=== PATIENT | male | born 1990 | race Caucasian/White ===

== ENCOUNTER 2017-04-01 06:49 | Emergency (ER) | payer OTHER ==
[2017-04-01 07:17] VITALS: BP 144/82
--- NOTE | 2017-04-01 07:29 | EDM.PDOC ---
ED HPI GENERAL MEDICAL PROBLEM - General Chief Complaint: Chest Pain Stated Complaint: CHEST PAIN Time Seen by Provider: 04/01/17 07:20 Source of Information: Reports: Patient History Limitations: Reports: No Limitations - History of Present Illness INITIAL COMMENTS - FREE TEXT/NARRATIVE: 27-year-old male presents to the ED with severe left-sided chest pain. Pain is sharp and pleuritic and worsens with deep breathing or coughing. Also worsens with movement. He states he thinks he injured his chest wall by playing basketball a few weeks ago aggressively to the point that he vomited. He was not used to that form of strenuous exercise. At that time he was diagnosed with intercostal muscle strain. He states he's had intermittent chest pain since. Pain worsened last evening and is much worse this morning. He has been drinking alcohol a good portion of the last evening and early this morning. Denies any vomiting. States he has a mild cough at present with yellow sputum. Clinically he does feel slightly warm to palpation. Onset: Other (Off and on symptoms for 3 months worse the last) Onset Date: 03/31/17 (Guarded again last evening.) Duration: Hour(s):, Intermittent, Waxing/Waning Location: Reports: Chest (Left anterior chest. The corneum.) Quality: Reports: Ache, Sharp, Stabbing Severity: Moderate (Pain is listed as 7 or 8 out of 10 with movement the hole drill still it's a 1 or 2.) Improves with: Reports: Rest Worsens with: Reports: Other (Coughing or deep breathing.), Movement Context: Denies: Activity, Exercise, Sick Contact, Trauma, Other Associated Symptoms: Reports: No Other Symptoms, Cough, cough w sputum. Denies : Confusion, Chest Pain, Diaphoresis (Yellowish tinge to sputum), Fever/Chills, Headaches, Loss of Appetite, Malaise, Nausea/Vomiting, Rash, Seizure, Shortness of Breath, Syncope Treatments LITIGATION PARTNER: Reports: Other (see below) (None.) Left Chest Pain Score (Numeric/FACES): 8 - Related Data Allergies Allergy/AdvReac Type Severity Reaction Status Date / Time No Known Allergies Allergy Verified 08/19/16 23:12 Home Meds: Home Meds Dextroamphetamine/Amphetamine [Adderall] 15 mg PO BID 09/03/17 [History] Diclofenac Sodium [Voltaren] 50 mg PO TIDMEALS #24 tab.ec 04/01/17 [Rx] Prednisone [IMW: predniSONE] 20 mg PO ASDIRECTED #15 tab 04/01/17 [Rx] oxyCODONE HCl/Acetaminophen [Percocet 5-325 mg Tablet] 1 - 2 each PO Q4H PRN # 15 tablet 04/01/17 [Rx] Past Medical History - Past Health History Medical/Surgical History: Denies Medical/Surgical History Musculoskeletal History: Reports: Other (See Below) Other Musculoskeletal History: intercostal muslce strain Psychiatric History: Reports: ADHD (Takes Adderall.) Social & Family History - Tobacco Use Smoking Status *Q: Current Every Day Smoker Years of Tobacco use: 9 Packs/Tins Daily: 0.5 Used Tobacco, but Quit: No Second Hand Smoke Exposure: No - Caffeine Use Caffeine Use: Reports: Energy Drinks - Recreational Drug Use Recreational Drug Use: No - Living Situation & Occupation Living situation: Reports: Single Occupation: Employed ED ROS GENERAL - Review of Systems Review Of Systems: See Below Constitutional: Reports: Decreased Appetite. Denies: Fever, Chills, Malaise, Weakness, Fatigue, Weight Loss HEENT: Reports: No Symptoms Respiratory: Reports: Shortness of Breath (Due to severe pleuritic chest pain.) , Pleuritic Chest Pain ( yellowish tinged sputum. very sharp stabbing left- sided chest pain worse with movement and deep inspiration. ), Cough, Sputum ( Mild sleep) Cardiovascular: Reports: Chest Pain. Denies: Blood Pressure Problem (See history of present illness), Claudication, Dyspnea on Exertion, Edema, Lightheadedness, Orthopnea, Palpitations Endocrine: Reports: No Symptoms GI/Abdominal: Reports: Nausea (Mildly nauseated this morning. He is hung over.) . Denies: Abdominal Pain : Reports: No Symptoms Musculoskeletal: Denies: Shoulder Pain, Arm Pain, Back Pain, Joint Pain, Joint Swelling Skin: Reports: No Symptoms Neurological: Reports: No Symptoms Psychiatric: Reports: No Symptoms Hematologic/Lymphatic: Reports: No Symptoms Immunologic: Reports: No Symptoms ED EXAM, GENERAL - Physical Exam Exam: See Below Exam Limited By: Intoxication (Mildly intoxicated.) General Appearance: Alert, WD/WN, No Apparent Distress, Other (Does feel a little bit warm to palpation.) Eye Exam: Bilateral Eye: Normal Inspection, Nystagmus (Mild on bilateral lateral superior gaze.) Throat/Mouth: Normal Inspection, Normal Lips, Normal Teeth, Normal Oropharynx, Other Head: Atraumatic, Normocephalic (Oropharynx is slightly erythematous.) Neck: Normal Inspection, Supple, Non-Tender, Full Range of Motion. No: Carotid Bruit, Lymphadenopathy (L), Lymphadenopathy (R), Thyromegaly Respiratory/Chest: Respiratory Distress, Decreased Breath Sounds (Decreased breath sounds to the lower 40% of lung newell as he can't take a deep breath due to the severity of the pain.), Splinting (Splinting rest side.), Other ( Patient is exquisitely tender to touch particularly ribs 34 and 5 midclavicular line and lateral anterior axillary line. No evidence of trauma to this area of the chest wall.). No: Chest Non-Tender (Shallow breathing due to left-sided chest pain) Cardiovascular: Normal Peripheral Pulses, Regular Rate, Rhythm, No Edema, No Murmur Peripheral Pulses: 2+: Posterior Tibial (L), Posterior Tibial (R), Dorsalis Pedis (L), Dorsalis Pedis (R) GI/Abdominal: Normal Bowel Sounds, Non-Tender, No Organomegaly, No Distention (Male) Exam: Normal Inspection Rectal (Males) Exam: Normal Exam Back Exam: Normal Inspection, Full Range of Motion Extremities: Normal Range of Motion, Non-Tender Neurological: Alert, Oriented, CN II-XII Intact, Normal Cognition, Normal Reflexes, No Motor/Sensory Deficits Psychiatric: Normal Affect, Normal Mood Skin Exam: Dry, Intact, Normal Color, No Rash EKG INTERPRETATION EKG Date: 04/01/17 Time: 07:00 Rhythm: NSR Rate (Beats/Min): 92 [place]: Normal P-Wave: Present QRS: Normal ST-T: Other QT: Normal EKG Interpretation Comments: borderline ECG Course - Vital Signs Last Recorded V/S: Last Vital Signs Temp 37.3 C 04/01/17 07:00 Pulse 95 04/01/17 07:00 Resp 18 04/01/17 07:00 BP 144/82 H 04/01/17 07:17 Pulse Ox 100 04/01/17 07:00 - Orders/Labs/Meds Orders: Active Orders 24 hr Category Date Time Status EKG 12 Lead [EKG Documentation Completion] [RC] STAT Care 04/01/17 07:07 Active Chest 2V [CR] Stat Exams 04/01/17 07:29 Taken Meds: Medications Discontinued Medications Generic Name Dose Route Start Last Admin Trade Name Triston PRN Reason Stop Dose Admin Ibuprofen 800 mg 04/01/17 07:30 04/01/17 07:43 Motrin PO 04/01/17 07:31 800 mg ONETIME ONE Administration Ondansetron HCl 4 mg 04/01/17 07:30 04/01/17 07:43 Zofran Odt PO 04/01/17 07:31 4 mg ONETIME ONE Administration Oxycodone/Acetaminophen 1 tab 04/01/17 07:30 04/01/17 07:43 Percocet 325-5 Mg PO 04/01/17 07:31 1 tab ONETIME ONE Administration Prednisone 30 mg 04/01/17 07:53 04/01/17 08:05 Prednisone PO 04/01/17 07:54 30 mg ONETIME ONE Administration - Radiology Interpretation Free Text/Narrative:: 27-year-old male presents to the ED with diffuse left anterior chest pain which is extremely sharp and stabbing. No known injuries to the chest although he had intercostal muscle strain from an vigorous basketball playing 3 months ago. He has had intermittent left-sided chest pain since. Gone away up until last evening. He does have a persistent mild cough with yellow sputum production reported. Mentation reveals exquisite tenderness to palpation of ribs 3-,4 and5 midclavicular and lateral anterior axillary line on the left side. ECG done by triage nurse shows sinus rhythm at 92/m with no signs of ischemia. Plan will be given 800 mg of Motrin by mouth with Zofran 4 mg sublingual and 1 Percocet 11/3324 milligram tablet by mouth. Two -view chest x-ray to be obtained - Re-Assessments/Exams Free Text/Narrative Re-Assessment/Exam: 04/01/17 07:53 two-view chest x-ray is within normal limits. I'm therefore going to add prednisone 30 mg now in an effort to start prednisone therapy for relieve the inflammation of chest wall. 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 It is open from noon until 4 04/01/17 08:17 no call also be provided for his boss so that he may attend alternative work duties if not capable of returning to full-time work. Departure - Departure Time of Disposition: 07:39 Disposition: Home, Self-Care 01 Condition: Fair Clinical Impression: Anterior chest wall pain Prescriptions: Diclofenac Sodium [Voltaren] 50 mg PO TIDMEALS #24 tab.ec oxyCODONE HCl/Acetaminophen [Percocet 5-325 mg Tablet] 1 - 2 each PO Q4H PRN # 15 tablet PRN Reason: pain relief. Prednisone [IMW: predniSONE] 20 mg PO ASDIRECTED #15 tab Instructions: Chest Wall Pain, [id number] Referrals: Dony Mendes PA-C [Primary Care Provider] - Forms: ED Department Discharge, ED Return to Work/School Form Additional Instructions: Evaluation the emergency room today in regards to significant left-sided chest wall pain making it very difficult to breathe cough or move. Exam reveals exquisite tenderness to palpation of the lining of ribs 34 and 5 on the left side in midclavicular line as well as and towards the armpit. There appears to be a significant inflammation of the lining of the ribs in this area. This is usually set off by a viral infection. It can last several weeks before dissipates. There is no evidence of heart related illness. ECG is completely normal. Two-view chest x-ray also found to be within normal limits. Treatment is therefore medications to reduce the inflammation and pain in the chest wall. Suggest use of prednisone 20 mg with breakfast and supper for 5 days then 1 tablet in the morning only for another 5 days. Voltaren 50 mg 3 times daily for 8 days to reduce pain and inflammation. This medication takes a good day and a half to start to work. In the maintain meantime may take a Percocet 5/325 milligram tablet 1 or 2 every 4-6 hours for pain relief until the prednisone and Voltaren are working well. Expect gradual improvement over the next week to 10 days. - My Orders Last 24 Hours: My Active Orders 04/01/17 07:07 EKG 12 Lead [EKG Documentation Completion] [RC] STAT 04/01/17 07:29 Chest 2V [CR] Stat - Assessment/Plan Last 24 Hours: My Active Orders 04/01/17 07:07 EKG 12 Lead [EKG Documentation Completion] [RC] STAT 04/01/17 07:29 Chest 2V [CR] Stat
[2017-04-01] MEDS ORDERED: Ondansetron 4 MG Tab.DIS PO ONE (07:30)
[2017-04-01] MEDS ORDERED: Acetaminophen/oxyCODONE 325-5 MG Tab PO ONE (07:30)
[2017-04-01] MEDS ORDERED: Ibuprofen 800 MG Tab PO ONE (07:30)
[2017-04-01] MEDS ORDERED: predniSONE 20 MG Tab PO ONE (07:53)
--- NOTE | 2017-04-02 17:59 | CR ---
Chest: Two views of the chest were obtained. Comparison: Previous chest x-ray of 03/05/13. Heart size and mediastinum are normal. Lungs are clear. Bony structures are unremarkable. Impression: 1. Nothing acute is identified on two-view chest x-ray. Diagnostic code #1
== END 2017-04-01 08:21 | disposition home or self-care (01) ==
LOC: JD.ED 06:49
DX: R07.89 Other chest pain (principal); F17.210 Nicotine dependence, cigarettes, uncomplicated; Z79.899 Other long term (current) drug therapy
CPT/HCPCS: 71020; 93005; 99284; A9270

== ENCOUNTER 2017-09-16 03:32 | Emergency (ER) | payer SELFPAY ==
[2017-09-16 03:41] VITALS: BP 138/78
--- NOTE | 2017-09-16 03:49 | EDM.PDOC ---
ED HPI GENERAL MEDICAL PROBLEM - General Chief Complaint: Bite:Animal, Insect Stated Complaint: BOG BITE Time Seen by Provider: 09/16/17 03:46 Source of Information: Reports: Patient, Significant Other (Girlfriend) History Limitations: Reports: No Limitations - History of Present Illness INITIAL COMMENTS - FREE TEXT/NARRATIVE: The patient states that he gave his dogs some bones to chew on. They began to fight over one of the bones, and the patient tried to break the fight up, getting bitten on the distal phalanx of his left fourth finger, around 02:30 this morning. The patient is otherwise uninjured. The patient's last tetanus vaccination was 08/16/2016. The patient's PCP is Dony Mendes. - Related Data Allergies Allergy/AdvReac Type Severity Reaction Status Date / Time No Known Allergies Allergy Verified 09/16/17 03:41 Home Meds: Home Meds Dextroamphetamine/Amphetamine [Adderall] 15 mg PO BID 04/01/17 [History] Amoxicillin/Clavulanate K [Augmentin 875-125 MG] 1 tab PO Q12H #19 tablet [Rx] Past Medical History Psychiatric History: Reports: ADHD (Takes Adderall.) Social & Family History - Tobacco Use Smoking Status *Q: Current Every Day Smoker Years of Tobacco use: 13 Packs/Tins Daily: 0.8 - Caffeine Use Caffeine Use: Reports: Energy Drinks - Alcohol Use Alcohol Use History: Yes Alcohol Use Frequency: Socially - Recreational Drug Use Recreational Drug Use: No - Living Situation & Occupation Living situation: Reports: Single, with Significant Other (Girlfriend) Occupation: Employed (technician inventory specialist) ED ROS GENERAL - Review of Systems Review Of Systems: ROS reveals no pertinent complaints other than HPI. ED EXAM, ANIMAL BITE - Physical Exam Exam: See Below Exam Limited By: No Limitations General Appearance: Alert, WD/WN, No Apparent Distress Extremities: Other (There is a relatively small but somewhat macerated laceration to the ulnar aspect of the left fourth distal phalanx. There is an additional superficial laceration to the dorsal aspect of the left fourth distal phalanx associated with a small ecchymosis at the nailbed. There is an additional superficial laceration to the ulnar aspect of the left fourth distal phalanx. Neurovascular status of the finger is intact.) Course - Vital Signs Last Recorded V/S: Last Vital Signs Temp 36.2 C 09/16/17 03:38 Pulse 79 09/16/17 03:38 Resp 18 09/16/17 03:38 BP 138/78 09/16/17 03:38 Pulse Ox 97 09/16/17 03:38 - Orders/Labs/Meds Orders: Active Orders 24 hr Category Date Time Status Amoxicillin/Clavulanate K [Augmentin 875 MG/125 MG] Med 09/16/17 04:03 Once 1 tab PO ONETIME ONE - Re-Assessments/Exams Free Text/Narrative Re-Assessment/Exam: 09/16/17 04:03 The patient has 2 scratches and a somewhat macerated laceration to the distal phalanx of his left fourth finger. Because this is a dog bite, suturing is not recommended. The wound has only been cleaned, and a clean dressing will be applied. The patient will be started on oral Augmentin, and an e-prescription will be sent to complete a ten-day course. Departure - Departure Time of Disposition: 04:05 Disposition: Home, Self-Care 01 Condition: Good Clinical Impression: Dog bite of finger - Discharge Information Referrals: Dony Mendes PA-C [Primary Care Provider] - Forms: ED Department Discharge Additional Instructions: You were seen in the emergency room after your left ring finger was bitten by one of your dogs. You have been started on the antibiotic Augmentin. A prescription for this has been sent to the [facility]. They will be open between noon and 4: 00 pm today. Take one tablet every 12 hours, as prescribed. Finish the entire prescription unless told otherwise by your PCP. Take [id number] Tylenol or ibuprofen as needed for discomfort. Keep your wound clean with ordinary soap and water, then apply a clean bandage, daily. Change the bandage if it gets wet or dirty. We strongly recommend that you follow-up with your PCP, Dony Mendes, this coming week, even if your finger looks to be doing well. If any other problems, please do not hesitate to return to the ER. - My Orders Last 24 Hours: My Active Orders 09/16/17 04:03 Amoxicillin/Clavulanate K [Augmentin 875 MG/125 MG] 1 tab PO ONETIME ONE - Assessment/Plan Last 24 Hours: My Active Orders 09/16/17 04:03 Amoxicillin/Clavulanate K [Augmentin 875 MG/125 MG] 1 tab PO ONETIME ONE
[2017-09-16] MEDS ORDERED: Amoxicillin/Clavulanate K 875-125 MG Tab PO ONE (04:03)
== END 2017-09-16 04:27 | disposition home or self-care (01) ==
LOC: JD.ED 03:32
DX: S61.355A Open bite of left ring finger with damage to nail, initial encounter (principal); W54.0XXA Bitten by dog, initial encounter; F17.210 Nicotine dependence, cigarettes, uncomplicated
CPT/HCPCS: 99283; A9270